=== PATIENT | male | born 1990 | race Caucasian/White ===

== ENCOUNTER 2020-11-16 01:01 | Emergency (ER) | payer BC, SELFPAY ==
--- NOTE | 2020-11-16 01:00 | RT.EKG_ITS ---
APPROVED REPORT Exam: Resting ECG Patient Location: E HR:113 bpm ECG Measurements Heart Rate 113 AXIS CA 166 P 48 QRSd 86 QRS 39 QT 329 T 27 QTc 453 Conclusion Sinus tachycardia...rate> 99 I have reviewed and interpreted ECG and agree with software generated interpretation. No STEMI
--- NOTE | 2020-11-16 01:00 | DI.CT_ITS ---
EXAM: CT ABDOMEN PELVIS WO CLINICAL HISTORY: ruq pain and right flank pain. TECHNIQUE: Imaging Protocol: Axial computed tomography images with coronal and sagittal reformatted images were created and reviewed. COMPARISON: No exams were available for comparison FINDINGS: ABDOMEN: Lung Bases: Normal where visualized. Liver: Normal density. No measurable mass. Gallbladder and biliary tract: No radiodense calculus or biliary ductal dilation. Pancreas: Normal density, no abnormal calcifications or inflammatory process. Spleen: Normal. Kidneys: Normal size, contour and axis.No radiodense stones or obstructive uropathy. No masses seen. There may be mild perinephric stranding on the left. Adrenal glands: No mass is seen. Lymph nodes: Mildly prominent mesenteric lymph nodes. The largest measures 1.1 x 1.7 cm. Abdominal Aorta: Abdominal portion non-dilated. PELVIS: Bladder:No gross abnormality. Bowel: No obstruction or bowel wall thickening. No evidence of appendicitis. Peritoneal cavity: No ascites, collection or mesenteric inflammatory response. No free air. Reproductive organs: Within normal limits. Bones: There is L5 spondylolysis but no significant spondylolisthesis. Soft Tissues: Within normal limits. IMPRESSION: 1. Equivocal mildly enlarged mesenteric lymph nodes. This may represent mesenteric adenitis. 2. Question of mild stranding around the left kidney. This is nonspecific. Infection cannot be excl uded.Please correlate clinically. RADIATION DOSE DELIVERED: 1,635.9mGy.cm Total DLP DATA REPOSITORY: All CT scans at this facility are submitted to the National Radiology Data Registry (NRDR) Dose Index Registry (DIR) with the [employer] (A[employer]). RADIATION OPTIMIZATION: All CT scans at this facility use at least one of these dose optimization te chniques: automated exposure control; mA and/or kV adjustment per patient size (includes targeted exa ms where dose is matched to clinical indication); or iterative reconstruction.
[2020-11-16 01:05] VITALS: BP 166/113; PULSE 111; RESP 18; TEMP 36.7; O2SAT 98
--- NOTE | 2020-11-16 01:09 | W.ED.GENAD ---
Discharge Plan Disposition Patient Disposition: HOME Condition: Good Discharge Details Clinical Impression: Acute right flank pain Primary Care Provider: Brissa Lazaro ED Provider: Matt Valenzuela Discharge Instructions Instructions: Flank Pain (ED) Additional Instructions: At this time your CAT scan shows no evidence of significant abnormality for your gallbladder or your appendix. Your labs are reassuring for your pancreas, kidneys and liver. I suspect that the cause of your pain may have been a kidney stone, or a mild spasm of your gallbladder. Please take Tylenol and Motrin as needed for pain. Please drink plenty of fluids at home. If you notice any worsening of your symptoms, or any new symptoms such as vomiting, diarrhea, fever, chills, shortness of breath, chest pain, numbness, weakness, or fainting , please return immediately to the emergency department for reevaluation. Please follow up with your primary care provider as soon as possible for reassessment and reevaluation. As always, it was a pleasure participating in your medical care today. Referrals: Brissa Lazaro, [facility] SPECIALIST [Primary Care Provider] - Medical Decision Making 30-year-old occasions with no significant past medical history who presents today for evaluation of right upper quadrant abdominal pain and right flank pain. Patient states that today he has had mild sharp right upper quadrant pain and right flank pain, slight radiation to the mid epigastric region. This evening the notably worse. He has been nauseous and did make himself vomit this did not change his symptoms. No hematemesis. He had one episode of loose stool this evening with salt, no blood. He denies any chest pain,a genital pain, or other complaints. No history of kidney stones in the past. No other modifying factors. Exam demonstrates mild right upper quadrant tenderness and mild right CVA tenderness. No evidence of an acute surgical abdomen. Differential is broad but includes urolithiasis, gallbladder pathology. Cardiac etiology is very unlikely however out of an abundance of precaution we will do a screening troponin EKG. No indication for delta troponin has been present throughout the day. We will treat the patient's pain, get a CT scan, monitor closely and reassess [address] scan has returned, there is equivocal left-sided renal pelvic stranding, this is opposite the side of his pain. UA does show a very small amount of RBCs. He may have had a passed kidney stone. On reassessment he does have intermittent but notably improved pain in the right upper quadrant. I do suspect this is likely a component of biliary colic. I discussed with him his diet today it included a burrito, lasagna, creamy chicken dishes, amongst other food. I would be surprised gallbladder spasm is the main etiology. Cardiac work-up is unremarkable, laboratory work-up is unremarkable. No signs of transaminitis hyperbilirubinemia. EKG and troponin are both normal. Symptoms are inconsistent with cardiac etiology. Patient was sleeping and resting comfortably on most recent assessment. Repeat abdominal exam shows no signs of acute surgical abdomen. Patient will be discharged home with no evidence of acute life-threatening etiology. I have extensively reviewed the treatment plan and discharge instructions with the patient. I have addressed all patient concerns at this time. The patient was made aware of what symptoms to monitor for that would warrant a return to the emergency department. Discussed the plan with the patient, they demonstrate verbal understanding and agreement with our assessment and plan at this time. The documentation in this chart was dictated using [employer] dictation software. Please excuse any dictation errors. FINDINGS: Liver: Normal. No mass. Gallbladder and bile ducts: Normal. No calcified stones. No ductal dilation. Pancreas: Normal. No ductal dilation. Spleen: Normal. No splenomegaly. Adrenal glands: Normal. No mass. Kidneys and ureters: Equivocal left-sided Odilia renal pelvic stranding noted. This is an equivocal and nonspecific finding, however correlation with UA recommended to exclude pyelonephritis. Stomach and bowel: Unremarkable. No obstruction. No mucosal thickening. Appendix: No evidence of appendicitis. Intraperitoneal space: Unremarkable. No free air. No significant fluid collection. Vasculature: Unremarkable. No abdominal aortic aneurysm. Lymph nodes: Unremarkable. No enlarged lymph nodes. Urinary bladder: Unremarkable as visualized. Reproductive: Unremarkable as visualized. Bones/joints: Chronic bilateral L5 spondylolysis and spondylolisthesis of L5 on S1. Soft tissues: Unremarkable. IMPRESSION: Equivocal left-sided Odilia renal pelvic stranding noted. This is an equivocal and nonspecific finding, however correlation with UA recommended to exclude pyelonephritis. Thank you for allowing us to participate in the care of your patient. Dictated and Authenticated by: Brian Brownlee MD 11/16/2020 1:49 AM Eastern Time ([place] & [place]) HPI General Date/Time Provider Initiated Documentation: 11/16/20 01:03. HPI Narrative: 30-year-old occasions with no significant past medical history who presents today for evaluation of right upper quadrant abdominal pain and right flank pain. Patient states that today he has had mild sharp right upper quadrant pain and right flank pain, slight radiation to the mid epigastric region. This evening the notably worse. He has been nauseous and did make himself vomit this did not change his symptoms. No hematemesis. He had one episode of loose stool this evening with salt, no blood. He denies any chest pain,a genital pain, or other complaints. No history of kidney stones in the past. No other modifying factors. Related Data Allergies Allergy/AdvReac Type Severity Reaction Status Date / Time No Known Allergies Allergy Unverified 11/16/20 01:09 General Stated Complaint: Abd Prob LYSSA: 3 Review of Systems All systems reviewed & are unremarkable except as noted in HPI and below PFSH Social History Smoking/Tobacco Use Status: Former Tobacco Use Smoking risk assessment performed?: Yes Alcohol Intake: former Substance use type: does not use Do you feel safe at home: Yes Do you feel safe in your relationship?: Yes Exam Narrative Exam Narrative: 1.Const: Well-nourished, Well-developed, appearing stated age 2.Eyes: PERRL, no conjunctival injection, and symmetrical lids. 3.ENT: Atraumatic external nose and ears. Moist MM. Neck: Symmetric, trachea midline, No thyromegaly. 4.CVS: +S1/S2, No murmurs or gallops. Peripheral pulses 2+ and equal in all extremities. Brisk capillary refill in all extremities. 5.RESP: Unlabored respiratory effort. Clear to auscultation bilaterally. No wheezes rales or rhonchi 6.GI: Soft, nondistended, mild tenderness right upper quadrant. Negative Ballard sign. Of the right CVA tenderness. No pain over McBurney point. No other pain throughout. No genital tenderness or pain. 7.MSK: Normocephalic/Atraumatic, Extremities w/o deformity or ttp No cyanosis or clubbing, Normal movement of all extremities 8.Skin: Warm, Dry. No rashes or lesions. 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 Sensation grossly intact, no focal neurologic deficits. 10.Psych: (AAO) x3. Appropriate mood and affect Course Vital Signs Vital signs: Vital Signs Temperature 36.7 C 11/16/20 01:05 Pulse 111 H 11/16/20 01:05 Respiratory Rate 18 11/16/20 01:05 Blood Pressure 166/113 H 11/16/20 01:05 Pulse Oximetry 98 11/16/20 01:05 Temperature 36.7 C 11/16/20 01:05 Temperature Source Tympanic 11/16/20 01:05 Pulse 111 H 11/16/20 01:05 Respiratory Rate 18 11/16/20 01:05 Blood Pressure 166/113 H 11/16/20 01:05 Blood Pressure Position Sitting 11/16/20 01:05 Pulse Oximetry 98 11/16/20 01:05 Oxygen Delivery Method Room Air 11/16/20 01:05 Oxygen Flow Rate 0 11/16/20 01:05 Pain Level 9 11/16/20 01:05
[2020-11-16] MEDS: Ondansetron 4 MG/2 ML VIAL IVP (01:14)
[2020-11-16] MEDS: HYDROmorphone 2 MG/ML VIAL 1 MG IVP (01:15)
[2020-11-16 01:18] LABS: Abs Immature Grans 0.03 10^3/uL (0.0-0.06); Absolute Basophil Count 0.04 10^3/uL (0.0-0.2); Absolute Eosinophil Count 0.15 10^3/uL (0.0-0.7); Absolute Lymphocyte Count 2.76 10^3/uL (1.2-3.4); Absolute Monocyte Count 0.79 10^3/uL (0.1-0.8); Absolute Neutrophil Count 4.35 10^3/uL (1.2-6.7); Basophils % 0.5; Eosinophils % 1.8; HCT 47.6 % (40.0-50.0); HGB 15.8 g/dL (13.5-17.5); Immature Grans % 0.4; MCH 31.9 pg (27.0-33.0); MCHC 33.2 % (32.0-36.0); MCV 96.2 fL (80-95); MPV 10.6 fL (8.0-11.0); Monocytes % 9.7; Neutrophils % 53.6; Nucleated RBC 0 %; Platelet Count 234 10^3/uL (130-400); RBC 4.95 10^6/uL (4.36-5.78); RDW 11.9 % (11.8-14.1); WBC 8.12 10^3/uL (4.4-10.8)
[2020-11-16 01:27] LABS: Lipase 145 U/L (73-393)
[2020-11-16 01:36] LABS: ALT 44 U/L (16-63); AST 17 U/L (15-37); Albumin 4.1 g/dL (3.4-5.0); Alkaline Phosphatase 72 U/L (46-116); Anion Gap 6.6 mmol/L (3-11); BUN 13 mg/dL (7-18); Bilirubin, Total 0.4 mg/dL (0.2-1.0); CO2 30.4 mmol/L (21.0-32.0); CREATININE 1.1 mg/dL (0.70-1.30); Calcium 8.7 mg/dL (8.5-10.1); Chloride 104 mmol/L (98-107); Glucose 98 mg/dL (74-106); Sodium 141 mmol/L (136-145); Total Protein 8.3 g/dL (6.4-8.2)
[2020-11-16 01:39] LABS: Troponin I < 0.05 ng/mL (<0.06)
[2020-11-16] MEDS: HYDROmorphone 2 MG/ML VIAL (01:42)
[2020-11-16 01:43] VITALS: BP 165/119; PULSE 107; RESP 18; O2SAT 98
[2020-11-16] MEDS: Normal Saline 1,000 ML 1000 ML IV (01:43)
--- NOTE | 2020-11-16 01:50 | DI.VRAD_ITS ---
PROCEDURE INFORMATION: Exam: CT Abdomen And Pelvis Without Contrast Exam date and time: 11/16/2020 1:09 AM Age: 30 years old Clinical indication: Abdominal pain and other: R flank; Localized; Left upper quadrant (luq); Patient HX: Severe ruq and R flank pain TECHNIQUE: Imaging protocol: Computed tomography of the abdomen and pelvis without contrast. Radiation optimization: All CT scans at this facility use at least one of these dose optimization techniques: automated exposure control; mA and/or kV adjustment per patient size (includes targeted exams where dose is matched to clinical indication); or iterative reconstruction. COMPARISON: No relevant prior studies available. FINDINGS: Liver: Normal. No mass. Gallbladder and bile ducts: Normal. No calcified stones. No ductal dilation. Pancreas: Normal. No ductal dilation. Spleen: Normal. No splenomegaly. Adrenal glands: Normal. No mass. Kidneys and ureters: Equivocal left-sided Odilia renal pelvic stranding noted. This is an equivocal and nonspecific finding, however correlation with UA recommended to exclude pyelonephritis. Stomach and bowel: Unremarkable. No obstruction. No mucosal thickening. Appendix: No evidence of appendicitis. Intraperitoneal space: Unremarkable. No free air. No significant fluid collection. Vasculature: Unremarkable. No abdominal aortic aneurysm. Lymph nodes: Unremarkable. No enlarged lymph nodes. Urinary bladder: Unremarkable as visualized. Reproductive: Unremarkable as visualized. Bones/joints: Chronic bilateral L5 spondylolysis and spondylolisthesis of L5 on S1. Soft tissues: Unremarkable. IMPRESSION: Equivocal left-sided Odilia renal pelvic stranding noted. This is an equivocal and nonspecific finding, however correlation with UA recommended to exclude pyelonephritis. Dictated and Authenticated by: Brian Brownlee MD. Ordering:DON Gutierrez MD
[2020-11-16] MEDS: HYDROmorphone 2 MG/ML VIAL IVP ×2 (02:03→03:50)
[2020-11-16] MEDS: Ketorolac 30 MG/ML VIAL IVP (02:10)
[2020-11-16 02:35] VITALS: BP 152/98; PULSE 102; RESP 16; O2SAT 96
[2020-11-16 02:55] LABS: Bilirubin Negative (Negative); Blood Small (Negative); Clarity Clear (Clear); Glucose Negative (Negative); Ketones Negative (Negative); Leukocyte Esterase Negative (Negative); Nitrite Negative (Negative); Specific Gravity >= 1.030 (1.005-1.025); Urobilinogen 0.2 EU/dL (Up TO 0.2); pH 5.5 (5-8)
[2020-11-16 03:05] LABS: Bacteria Few HPF (Negative); Crystals Negative HPF (Negative); Epithelial Cells Few HPF (Negative)
[2020-11-16 03:06] LABS: C & S Indicated? No; Casts Negative LPF (Negative); Mucus Trace (Negative)
[2020-11-16 03:19] VITALS: BP 145/96; PULSE 97; RESP 15; O2SAT 98
[2020-11-16] MEDS: Acetaminophen 500 MG TAB 1000 MG PO (03:49)
[2020-11-16] MEDS: Ondansetron O.D.T. 4 MG TABEF, 3 TABS/BTL PO (04:28)
== END 2020-11-16 04:10 | disposition home or self-care (01) ==
PROVIDERS: Emergency Provider Student in an Organized Health Care Education/Training Program; PCP Nurse Practitioner Family
DX: R10.11 Right upper quadrant pain (principal); M54.5 Low back pain; R11.0 Nausea
CPT/HCPCS: 36415; 80053; 83690; 93005; 96361; 96374; 96375; 96376; 99285; 74176; 81003; 81015; 84484; 85025; 93010; 99284; J1885; J2405

== ENCOUNTER 2021-01-18 15:26 | Outpatient (REF) | payer BC, SELFPAY ==
[2021-01-18 14:53] LABS: Anion Gap 8.3 mmol/L (3-11); BUN 11 mg/dL (7-18); CO2 28.7 mmol/L (21.0-32.0); Calcium 9.2 mg/dL (8.5-10.1); Calculated LDL 90 mg/dL (<100); Chloride 107 mmol/L (98-107); Cholesterol 154 mg/dL (<200); Glucose 81 mg/dL (74-106); HDL Cholesterol 43 mg/dL (40-60); Potassium 4.2 mmol/L (3.5-5.1); Sodium 144 mmol/L (136-145); Triglyceride 106 mg/dL (<150)
== END 2021-01-18 15:27 | disposition home or self-care (01) ==
LOC: NCHCN 15:26
PROVIDERS: PCP Nurse Practitioner Family; Visit Provider Physician Assistant
DX: I10 Essential (primary) hypertension (principal)
CPT/HCPCS: 80048; 80061

== ENCOUNTER 2024-07-29 11:02 | Outpatient (REF) | payer BC, SELFPAY ==
[2024-07-29 17:17] LABS: Hemoglobin A1C 4.8 % (<5.7)
== END 2024-07-29 11:03 | disposition home or self-care (01) ==
LOC: NCHCN 11:02
PROVIDERS: PCP Nurse Practitioner Family; Visit Provider Physician Assistant
DX: Z13.1 Encounter for screening for diabetes mellitus (principal)
CPT/HCPCS: 83036